=== PATIENT | female | born 1950 | race Caucasian/White ===

== ENCOUNTER 2022-06-30 09:35 | Observation (INO) | payer MEDICARE, MEDICAID, SELFPAY ==
[2022-06-30] VITALS (13 sets, daily range): BP systolic 85–147; BP diastolic 65–80; PULSE 57–76; RESP 16–100; TEMP 36.3–36.8; O2SAT 98–100; BMI 27.5
--- NOTE | ~2022-06-30 | CT_ITS ---
EXAMINATION: CT brain wo con DATE: 06/30/2022 09:44 INDICATION: Right paresis. Slurred speech. Difficulty finding words. History of prior cerebrovascular accident in November 2021 TECHNIQUE: Computed tomography (CT) of the head was performed without intravenous contrast. The mA wa s adjusted according to patient size. Iterative reconstruction technique was employed. Exam dose: 75 6.67 mGy-cm total exam DLP. COMPARISON: None FINDINGS: Focal posterior left parietal chronic cerebrovascular accident, within left middle cerebral artery territory. Bilateral vertebral artery and carotid siphon internal carotid artery calcifications. There is nonspe cific diminished attenuation of the cerebral white matter, likely due to chronic small vessel ischemi c changes. No intracranial mass lesion or hemorrhage, midline shift or mass effect. No subdural or epidural mila sunitha. Mild to moderate cerebral and cerebellar volume loss. Mastoid air cells and included paranasal sinuses are unremarkable. No fracture or bone destruction of the cranial vault. IMPRESSION: Old posterior left parietal cerebrovascular accident Cerebral atherosclerosis and chronic small vessel ischemic changes of cerebral white matter No acute intracranial finding or hemorrhage Dr. Vigil telephoned the report to emergency room physician Dr. Curiel on 06/30/2022 at 0956 hours. Reviewed, dictated and finalized at [facility]. Reviewed, dictated and finalized at location [facility]. IMPRESSION: Old posterior left parietal cerebrovascular accident Cerebral atherosclerosis and chronic small vessel ischemic changes of cerebral white matter No acute intracranial finding or hemorrhage Dr. Vigil telephoned the report to emergency room physician Dr. Curiel on 2021 at 0956 hours.
--- NOTE | ~2022-06-30 | MR_ITS ---
EXAMINATION: MR brain/brain stem wo/w con DATE: 06/30/2022 14:11 INDICATION: right sided weakness TECHNIQUE: Magnetic resonance imaging (MRI) of the brain and brainstem was performed without intraven ous contrast. Sequences included sagittal and axial T1-weighted SE, axial diffusion-weighted FS EPI A SSET, axial T2*-weighted GRE, axial T2-weighted FLAIR Propeller, and axial T2-weighted Propeller. Pos tcontrast axial and coronal T1-weighted SE was obtained. Apparent diffusion coefficient (ADC) maps we re created. COMPARISON: CT brain, same date FINDINGS: No abnormal restricted diffusion to suggest acute ischemic infarct. No MRI evidence of hemorrhage or extra-axial collection. Small foci of susceptibility, nonspecific but most likely reflective of prior microhemorrhages. Susceptibility artifact also present in the left parietal lobe, with areas of abno rmal T2 hyperintensity, without restricted diffusion. Mild patchy T2 white matter hyperintensity, lik hemanth chronic change. Mild generalized parenchymal volume loss. Basal cisterns are patent. Flow voids a re preserved. Mild mucosal thickening in the paranasal sinuses. Bilateral lens replacements. IMPRESSION: 1. No MR evidence of acute infarct. 2. Subacute/chronic left parietal infarct. Reviewed, dictated and finalized at location [facility].
--- NOTE | ~2022-06-30 | XR_ITS ---
XR chest 1V portable DATE: 06/30/2022 09:55 INDICATION: Dizziness TECHNIQUE: Portable AP chest on 06/2022 at 0953 hours COMPARISON: None FINDINGS: Heart size appears within normal range considering magnification associated with AP project ion of the lungs are clear of infiltrate or consolidation. No pleural effusion or pulmonary vascular congestion or pneumothorax. IMPRESSION: No active cardiopulmonary disease Reviewed, dictated and finalized at location [facility].
--- NOTE | 2022-06-30 09:38 | ECG_ITS ---
Measurements Intervals [place] Rate: 56 P: [place]: 0 QRS: -21 QRSD: 84 T: 71 QT: 420 QTc: 408 Interpretive Statements SINUS RHYTHM WITH FIRST DEGREE AV BLOCK ANTEROSEPTAL INFARCT, AGE INDETERMINATE BORDERLINE ST-T WAVE ABNORMALITY- HIGH LATERAL LEADS BASELINE ARTIFACT- V2-V3 ABNORMAL ECG NO PREVIOUS ECG AVAILABLE FOR COMPARISON Electronically Signed On 06-30-2022 14:50:25 CDT by Shoaib Gomes D.O.
--- NOTE | 2022-06-30 09:56 | ED.NEUROSD ---
HPI - Neuro Symptoms/Deficit General Chief Complaint: Suspected CVA Stated Complaint: r/o CVA Time Seen by Provider: 06/30/22 09:38 History of Present Illness HPI Narrative: Patient is a 72-year-old female who presents ER with concerns for CVA. Patient was at a local sports facility when she began to feel weak and she was walking up his car and had a presyncopal episode. Family reported right-sided weakness and slurred speech. EMS contacted at [phone]. Symptoms have improved but patient still has some mild word searching difficulty which family reports to be her baseline. Patient believes she began having increased difficulty with some of her speech yesterday as well. No fevers or chills or sweats. No chest pain or chest pressure. Patient reports that she takes no blood thinners. Related Data Allergies Allergy/AdvReac Type Severity Reaction Status Date / Time acetaminophen [From Henrik] Allergy Rash Verified 06/30/22 10:15 chlorpheniramine Allergy Rash Verified 06/30/22 10:15 [From Henrik] oxymetazoline [From Henrik] Allergy Rash Verified 06/30/22 10:15 pheniramine [From Henrik] Allergy Rash Verified 06/30/22 10:15 phenylephrine [From Henrik] Allergy Rash Verified 06/30/22 10:15 pseudoephedrine Allergy Rash Verified 06/30/22 10:15 [From Henrik] Review of Systems Review of Systems: All systems reviewed & are unremarkable except as noted in HPI and below Constitutional: Constitutional: Denies chills, Reports fatigue and Denies fever(s) ENT: Denies nasal congestion and Denies sore throat Cardiovascular: Cardiovascular: Denies chest pain, Denies rapid heart rate and Denies radiating jaw, neck or arm pain Respiratory: Respiratory: Denies cough and Denies dyspnea Gastrointestinal: Gastrointestinal: Denies abdominal pain, Denies nausea and Denies vomiting Neurologic: Reports syncope (Near syncope), Denies headache(s), Reports focal weakness and Denies numbness Comments: Difficulty speaking PMFSH Past Medical History Medical History (Updated 06/30/22 @ 12:17 by Milton Curiel MD) AV fistula Left upper extremity at the wrist performed 06/2020 CKD (chronic kidney disease) stage 4, GFR 15-29 ml/min CVA (cerebral vascular accident) Diabetes Diabetic retinopathy Surgical History Surgical History (Updated 06/30/22 @ 12:15 by Milton Curiel MD) History of cataract surgery Bilateral Exam Narrative: GENERAL: Well-appearing, well-nourished, and in no acute distress. HEAD: Normocephalic, atraumatic. EYES: PERRL and EOMI. ENT: Mucous membranes moist. CHEST: Clear to auscultation. No respiratory distress. HEART: Regular rate and rhythm. Normal peripheral pulses. ABDOMEN: Soft, nontender, nondistended. EXTREMITIES: Normal range of motion. No edema. SKIN: Warm, dry, no rash. NEURO: Mild expressive aphasia and dysarthria that is chronic per patient and family who is present. No upper or lower extremity drift. Normal finger-nose testing and [id number] testing. No facial droop. Alert and oriented x3. PSYCH: Normal mood and affect. Course Course Emergency Course: Discussed case with Dr. Valdes. Recommends adding Plavix. Patient not a candidate for tPA given resolution of symptoms as well as recent surgery. Admit to hospitalist service. Vital Signs Vital signs: Vital Signs Pulse Rate 76 06/30/22 09:54 Temperature 98.2 F 06/30/22 10:09 Pulse Rate 60 06/30/22 11:00 Respiratory Rate 18 06/30/22 11:00 Blood Pressure 133/66 06/30/22 11:00 Pulse Oximetry 100 06/30/22 11:00 Oxygen Delivery Room Air 06/30/22 09:57 MDM - Neuro Symptoms/Deficit Lab Data Result diagrams: 06/30/22 09:49 06/30/22 09:49 Labs: Lab Results 06/30/22 06/30/22 06/30/22 Range/Units 09:49 09:49 09:49 WBC 5.2 (4.5-10.0) K/mm3 RBC 3.47 L (4.2-5.4) M/mm3 Hgb 10.4 L (12.0-15.0) g/dL Hct 32.2 L (37.0-47.0) % MCV 92.8 (80-100)
[2022-06-30 09:58] LABS: Basophils Absolute Auto 0.1 K/mm3 (0.0-0.1); Eosinophils Absolute Auto 0.2 K/mm3 (0-0.3); Eosinophils Percent Auto 4.6 % (0-4.4); Hematocrit 32.2 % (37.0-47.0); Hemoglobin 10.4 g/dL (12.0-15.0); Immature Granulocyte Absolute 0.02 K/mm3 (0.00-0.031); Immature Granulocyte Percent A 0.4 % (0-0.5); Lymphocytes Absolute Auto 2.02 K/mm3 (0.9-3.2); Mean Corpuscular HGB Conc 32.3 g/dl (32-36); Mean Corpuscular Volume 92.8 fl (80-100); Mean Platelet Volume 9.2 fl (7.4-10.4); Monocytes Absolute Auto 0.4 K/mm3 (0.1-0.6); Monocytes Percent Auto 7.1 % (2.6-8.5); Neutrophils Absolute Auto 2.5 K/mm3 (1.3-6.7); Neutrophils Percent Auto 47.9 % (45.5-73.1); Platelet Count Result 200 k/mm3 (150-375); Red Blood Count 3.47 M/mm3 (4.2-5.4); Red Cell Distribution Width 13.1 % (11.5-14.5); White Blood Count 5.2 K/mm3 (4.5-10.0)
[2022-06-30 10:05] LABS: Alanine Aminotransferase 19 U/L (6-35); Albumin Level 4.2 g/dL (3.5-5.1); Alkaline Phosphatase 89 U/L (38-126); Anion Gap 13 mmol/L (8-16); Aspartate Amino Transferase 25 U/L (14-36); Bilirubin,Total 0.4 mg/dL (0.2-1.3); Blood Urea Nitrogen 34 mg/dL (7-17); Carbon Dioxide 20 mmol/L (22-30); Chloride 106 mmol/L (98-107); Estimated Glomerular Filt Rate 23; Glucose 210 mg/dL (65-110); Potassium 4.9 mmol/L (3.4-5.0); Sodium 139 mmol/L (137-145)
[2022-06-30 10:06] LABS: Prothrombin Time 12.8 Seconds (11.1-14.7)
[2022-06-30 10:07] LABS: Partial Thromboplastin Time 27.2 SECONDS (22.3-36.8)
[2022-06-30 10:17] LABS: Troponin I 0.025 ng/mL (0.000-0.034)
[2022-06-30] MEDS: CLOPIDOGREL BISULFATE 75 MG TABLET PO (10:20)
--- NOTE | 2022-06-30 15:26 | ADMGEN ---
This patient, Sabine Suero, was admitted to [facility] Surg Room 331-01 at 12:55 pm. Patient/family oriented to hospital policies and general routines including ID bracelet, bed and alarms, visiting hours, pain management, procedures, bathroom and other care routines, personal items, smoking policy, room service/diet, and visiting hours. Information on how to activate the Rapid Response Team has been discussed. Patient/Family are encouraged to report perceived risks to care and to ask questions if they do not understand what they are told or what they should do.
--- NOTE | 2022-06-30 15:45 | PM.IMHP ---
H&P: HPI History of Present Illness Date/Time: 06/30/22 15:45 Chief Complaint: Right arm weakness and facial droop. Narrative: This is a 72-year-old female with history of stroke in November 2021 with resultant expressive aphasia and type 2 diabetes mellitus complicated by retinopathy, nephropathy, neuropathy, and gastroparesis who presented to the emergency department via EMS from a local sports complex for evaluation of right arm weakness and facial droop. She was in her usual state of health this morning and accompanied family members to watch her nephew play football. While exiting the car she turned to grab her cane at which time she reports that her right arm was not doing what she wanted to do and family members thought that she had some drooping of the right side of her face with some mild slurred speech. Her symptoms resolved within less than an hour and at the time my evaluation she is back to baseline. She states compliance with her home medications however her daughter and granddaughter at bedside report that she sometimes runs out of her medications and does not tell them when the need to be Refilled. She is not sure whether not she has been taking her aspirin the last several days. She is no longer on clopidogrel after taking that for 3 months after her stroke. Currently she has no complaints. She specifically denies vertigo, auditory and visual changes, current focal weakness, paresthesias (she has chronic diabetic neuropathy), current facial droop, worsening expressive aphasia from baseline, and dysphagia. Review of Systems Review of Systems: Twelve systems were reviewed. No fever, chills, or sweats. No recent cold or flu symptoms. She denies chest pain pleuritic pain. No palpitations or irregular heartbeat. Within the last couple of weeks she had an AV fistula created of the right forearm at the wrist, sutures reportedly still in place. Two previous attempts at fistula creation were unsuccessful. She believes her diabetes is fairly well controlled and thinks her last hemoglobin A1c was some where around 8%. Except as documented, all other systems were reviewed and are negative. [facility] Past Medical History Medical History (Updated 06/30/22 @ 21:46 by Alissa Sierra PA-C) Cerebrovascular accident (11/2021) Chronic kidney disease, stage 4, severely decreased GFR Diabetic gastroparesis Diabetic nephropathy Diabetic neuropathy Diabetic retinopathy Type 2 diabetes mellitus Surgical History Surgical History AV fistula Failed x2. Recent fistula created in RUE at wrist in 06/2022. History of bilateral cataract extraction History of eye surgery Multiple injections and laser eye surgery related to diabetic retinopathy. History of hemorrhoidectomy Family History Family History Mother Diabetes mellitus Congestive heart failure Father Cerebrovascular accident Congestive heart failure Social History Social History Social History: Surrogate medical decision maker: Betty Suero, daughter. Code status: Full code. Smoking status: Former smoker Tobacco type: cigarettes Additional smoking assessment comments: 2-3 packs per day, quit in 2016. Alcohol intake: never Substance use: never Living arrangements: alone Additional living arrangements comments: half-way apartment. Ambulates with cane. 1 daughter and granddaughter nearby. 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 Spiritual care concerns: No Meds Home Medications and Allergies Home Medications Medication Instructions Recorded Confirmed Type aspirin 81 mg tablet 81 mg PO DAILY 06/30/22 06/30/22 History atorvastatin 40 mg tablet 40 mg PO DAILY 06/30/22 06/30/22 History bisacodyl 5 mg tablet 5 mg PO PRN PRN Constipation 06/30/22 06/30/22 Histo
[2022-06-30 17:14] LABS: Glucose Point of Care 209 mg/dl (65-105)
[2022-06-30 19:48] LABS: Glucose Point of Care 280 mg/dl (65-105)
[2022-06-30] MEDS: rOPINIRole HCL 0.25 MG TABLET PO (22:32)
[2022-07-01] VITALS (7 sets, daily range): BP systolic 113–159; BP diastolic 63–86; PULSE 57–83; RESP 16–18; TEMP 36.1–36.7; O2SAT 98–100
[2022-07-01 07:38] LABS: Hematocrit 31.3 % (37.0-47.0); Hemoglobin 10.2 g/dL (12.0-15.0); Mean Corpuscular HGB Conc 32.6 g/dl (32-36); Mean Corpuscular Hemoglobin 30.3 pg (26-34); Mean Corpuscular Volume 92.9 fl (80-100); Mean Platelet Volume 9.3 fl (7.4-10.4); Platelet Count Result 186 k/mm3 (150-375); Red Blood Count 3.37 M/mm3 (4.2-5.4); Red Cell Distribution Width 13.1 % (11.5-14.5); White Blood Count 5.2 K/mm3 (4.5-10.0)
[2022-07-01 07:42] LABS: Anion Gap 9 mmol/L (8-16); Blood Urea Nitrogen 39 mg/dL (7-17); Calcium 9.2 mg/dL (8.4-10.2); Carbon Dioxide 20 mmol/L (22-30); Chloride 109 mmol/L (98-107); Estimated CRCL calculation 20 ml/min; Estimated Glomerular Filt Rate 23; Glucose 239 mg/dL (65-110); Magnesium 2.1 mg/dL (1.6-2.3); Potassium 4.9 mmol/L (3.4-5.0); Sodium 138 mmol/L (137-145)
[2022-07-01 07:53] LABS: Glucose Point of Care 229 mg/dl (65-105)
[2022-07-01 08:16] LABS: Thyroid Stimulating Hormone Reflex 0.858 uIU/mL (0.465-4.68)
[2022-07-01 08:37] LABS: Hemoglobin A1C 8.5 % (<5.7)
[2022-07-01] MEDS: INSULIN ASPART (*BKC) 100 UNITS/ML SUB-Q (08:39)
[2022-07-01] MEDS: rOPINIRole HCL 0.25 MG TABLET PO ×2 (08:42→17:02)
[2022-07-01] MEDS: CHOLECALCIFEROL 1,000 UNITS TABLET 2000 UNITS PO (08:42)
[2022-07-01] MEDS: DULoxetine HCL 60 MG CAPSULE.DR PO (08:42)
[2022-07-01] MEDS: ATORVASTATIN 40 MG TABLET PO (08:43)
[2022-07-01] MEDS: FAMOTIDINE 20 MG TABLET PO (08:43)
[2022-07-01] MEDS: GABAPENTIN 300 MG CAPSULE PO (08:43)
[2022-07-01] MEDS: ASPIRIN 81 MG CHEWABLE TABLET PO (08:43)
[2022-07-01] MEDS: glipiZIDE 5 MG TABLET 10 MG PO ×2 (08:43→17:02)
[2022-07-01 14:02] LABS: Glucose Point of Care 185 mg/dl (65-105)
--- NOTE | 2022-07-01 14:58 | PM.DS ---
DS: Admitting Diagnosis Discharge Date 07/01/2022 1644 Admitting Diagnosis TIA CKD stage 4, chronic Type 2 diabetes mellitus, chronic DS: Discharge Diagnosis Discharge Diagnosis (1) Transient ischemic attack: Code(s): G45.9 - Transient cerebral ischemic attack, unspecified Status: Acute (2) Type 2 diabetes mellitus: Code(s): E11.9 - Type 2 diabetes mellitus without complications Status: Chronic (3) Chronic kidney disease, stage 4, severely decreased GFR: Code(s): N18.4 - Chronic kidney disease, stage 4 (severe) Status: Chronic DS: Summary Hospital Course Reason for hospitalization: Right arm weakness and facial droop. Hospital Course: Sabine Suero is a 72-year-old female with history of stroke in November 2021 with resultant expressive aphasia and comorbid type 2 diabetes mellitus complicated by retinopathy, nephropathy, neuropathy, and gastroparesis. She presented to the emergency department via EMS from a local sports complex for evaluation of right arm weakness and facial droop. She was in her usual state of health in the morning and accompanied family members to watch her nephew play football. While exiting the car she turned to grab her cane at which time she reports that her right arm was not doing what she wanted to do and family members thought that she had some drooping of the right side of her face with some mild slurred speech. Her symptoms resolved within less than an hour. She states compliance with her home medications however her daughter and granddaughter reported that she sometimes runs out of her medications and does not tell them when they need to be refilled. She is not sure whether if she had been taking her aspirin the last several days.? She took clopidogrel for 3 months after her stroke, but is no longer taking it. She specifically denied vertigo, auditory and visual changes, current focal weakness, paresthesias (she has chronic diabetic neuropathy), current facial droop, worsening expressive aphasia from baseline, and dysphagia. The patient was admitted to the medical floor and monitored on telemetry. Neurology was consulted for assistance with management and the patient's case was reviewed by phone. Patient was restarted on plavix 75 mg PO daily for at least 6 more weeks. A1c was noted to be 8.5%, POC glucose> 200s, TSH 0.85, and her renal function was at baseline. PT/OT were consulted and the patient did well. She may benefit from outpatient therapy, however the patient refused home health or outpatient therapy. She was counseled extensively regarding diet, medications, and when to seek further care. As the patient was not actively taking her medications, she was counseled on setting timers, placing medication nearby or developing a schedule in order to be compliant. She reported her glipizide dose was increased recently by her [employer], therefore this medication was not changed. She was counseled on starting plavix and monitoring her blood pressure at home. Diet instruction and handouts were given at discharge. The patient was discharged home in stable condition. She requested to follow up with her current Neurologist, Dr. Bay. The patient's granddaughter was at bedside during patient education. Status at Discharge Cognitive/behavioral status at discharge: Alert and oriented x4, pleasant Functional status at discharge: uses cane/walker Overall status at discharge: patient is back to baseline Time Spent with Patient Time attestation: Total time spent providing and/or coordinating discharge services: Time spent: Greater than 30 minutes Exam Narrative: General: Well-developed female sitting up in bed in no distress. T97.6F, HR 60, RR 18, BP 116/66, spO2 98% RA, BMI: 27.5. HEENT: Normocephalic. PERRL, EOMI. Sclera anicteric. Oral mucosa moist. Oropharynx clear. Neck: Supple. No obvious carotid bruits though she has difficulties holding her breath. Res
[2022-07-01 16:45] LABS: Glucose Point of Care 133 mg/dl (65-105)
== END 2022-07-01 18:00 | disposition home or self-care (01) ==
LOC: ANHED 12:17 → ANH3MEDSUR 12:34
PROVIDERS: Physician Assistant; Admitting Provider Internal Medicine; Emergency Provider Emergency Medicine; PCP Internal Medicine; Visit Provider Nurse Practitioner Family
DX: G45.9 Transient cerebral ischemic attack, unspecified (principal); E11.22 Type 2 diabetes mellitus with diabetic chronic kidney disease; N18.4 Chronic kidney disease, stage 4 (severe); R55 Syncope and collapse; E11.319 Type 2 diabetes mellitus with unspecified diabetic retinopathy without macular edema; E11.40 Type 2 diabetes mellitus with diabetic neuropathy, unspecified; E11.43 Type 2 diabetes mellitus with diabetic autonomic (poly)neuropathy; K31.84 Gastroparesis; Z86.73 Personal history of transient ischemic attack (TIA), and cerebral infarction without residual deficits; Z79.82 Long term (current) use of aspirin; Z79.84 Long term (current) use of oral hypoglycemic drugs; Z79.899 Other long term (current) drug therapy
CPT/HCPCS: 36415; 70450; 70553; 71045; 80048; 80053; 82948; 83036; 83735; 84443; 84484; 85025; 85027; 85610; 85730; 93005; 97161; 97165; 99285; A9270; A9577; G0378; J1815